=== PATIENT | female | born 1975 | race American Indian/Alaskan Native ===

== ENCOUNTER 2016-07-24 15:13 | Emergency (ER) | payer OTHER ==
[2016-07-24 15:46] VITALS: O2SAT 100
[2016-07-24 16:51] LABS: MEAN CELL VOLUME 70.1 fL (81.0-99.0); RED CELL DISTRIBUTION WIDTH 14.4 % (11.5-14.5); WHITE BLOOD COUNT 9.6 K/uL (4.8-10.8)
[2016-07-24 16:55] LABS: BASO # 0.1 K/uL (0.0-0.2); BASO % 0.8 % (0.0-2.0); EOS # 0.1 K/uL (0.0-0.7); EOS % 1.2 % (0.0-4.0); HEMATOCRIT 35.1 % (34.0-47.0); LYMPH % 20.7 % (20.0-40.0); MEAN CORPUSCULAR HEMOGLOBIN 21.7 pg (27.0-31.0); MEAN PLATELET VOLUME 8.4 fL (7.2-11.7); MONO # 0.8 K/uL (0.0-0.8); MONO % 8.4 % (0.0-10.0); NRBC % 0.1 % (0.0-2.0)
[2016-07-24 16:56] LABS: CHLORIDE 103 mmol/L (98-107)
--- NOTE | 2016-07-24 16:56 | C.PDOC ---
History Of Present Illness 41 year old female with no significant PMH presents to ED with complaints of bilateral foot swelling for 2 weeks. Patient reports swelling started gradually and feels both feet swollen and pain at rest, improves with walking. She reports pain is worse to right plantar foot. Additionally patient reports today complaining of intermittent right arm tingling sensation when she leaves arm down for too long, better when she elevates arm. She denies any headache, neck pain, dizziness, chest pain, SOB, calf pain, or taking any oral contraceptives. Time Seen by Provider: 07/24/16 16:01 Chief Complaint (Nursing): Lower Extremity Problem/Injury History Per: Patient History/Exam Limitations: no limitations Onset/Duration Of Symptoms: Days Current Symptoms Are (Timing): Still Present Severity: Moderate Past Medical History Reviewed: Historical Data, Nursing Documentation, Vital Signs Vital Signs: Last Vital Signs Temp 98.0 F 07/24/16 17:42 Pulse 65 07/24/16 17:42 Resp 17 07/24/16 17:42 BP 134/87 07/24/16 17:42 Pulse Ox 100 07/24/16 18:37 Family History: States: No Known Family Hx - Social History Hx Tobacco Use: Yes Hx Alcohol Use: Yes Hx Substance Use: Yes - Immunization History Hx Tetanus Toxoid Vaccination: Yes Hx Influenza Vaccination: No Hx Pneumococcal Vaccination: No Review Of Systems Except As Marked, All Systems Reviewed And Found Negative. Constitutional: Negative for: Fever Cardiovascular: Positive for: Edema. Negative for: Chest Pain, Palpitations Respiratory: Negative for: Cough, Shortness of Breath Musculoskeletal: Positive for: Foot Pain Neurological: Negative for: Headache, Dizziness Physical Exam - Physical Exam Appears: Non-toxic, No Acute Distress Skin: Warm, Dry, No Rash Head: Atraumatic, Normacephalic Eye(s): bilateral: Normal Inspection, PERRL, EOMI Nose: Normal Oral Mucosa: Moist Lips: Normal Appearing Neck: Normal ROM Chest: Symmetrical Cardiovascular: Rhythm Regular, No Murmur Respiratory: Normal Breath Sounds, No Accessory Muscle Use Back: Normal Inspection, No CVA Tenderness, No Vertebral Tenderness, No Paraspinal Tenderness Extremity: Tenderness, No Calf Tenderness, No Deformity, Other (right plantar medial pelletizer tender to palpation. trace pedal edema, no calf tenderness) Neurological/Psych: Oriented x3, Normal Speech Gait: Steady ED Course And Treatment - Laboratory Results Result Diagrams: 07/24/16 16:44 07/24/16 16:44 Lab Interpretation: No Acute Changes ECG: Interpreted By Me, Viewed By Me ECG Rhythm: Sinus Rhythm ECG Interpretation: No Acute Changes Rate From EC O2 Sat by Pulse Oximetry: 100 Pulse Ox Interpretation: Normal - CT Scan/US CT CERVICAL SPINE Other Rad Studies (CT/US): Read By Radiologist, Radiology Report Reviewed CT/US Interpretation: PROCEDURE: CT scan of the cervical spine 07/25/19. HISTORY: Right arm numbness. COMPARISON: No prior study available for comparison. TECHNIQUE: Contiguous helical/transaxial computed tomography images were obtained of the cervical spine without the use of intravenous contrast. Coronal and sagittal reformatted images were created and reviewed. Radiation dose: Total exam DLP = mGy-cm. This CT exam was performed using one or more of the following dose reduction techniques: Automated exposure control, adjustment of the mA and/or kV according to patient size, and/or use of iterative reconstruction technique. FINDINGS: VERTEBRAE: Current study reveals no acute compression fracture nor retropulsed fragments. . There is mild reversal of the normal cervical lordosis which could be due to patient positioning in the gantry however underlying element of muscle spasm may contribute. Vertebral bodies facets are otherwise normally aligned. DISCS/ SPINAL CANAL/NEURAL FORAMINA: Disc space heights are relatively maintained. No disc herniations nor significant disc bulges so far as can be seen. The overall central bony canal appears adequate throughout. There does appear to be mild foraminal narrowing more so on the left side at the C3-C4 level. Exit foramina appear relatively adequate at the remaining levels. . If symptoms persist, consider followup MRI of the cervical spine. PARASPINAL SOFT TISSUES: Prevertebral and paraspinal soft tissues grossly unremarkable. OTHER FINDINGS : Slightly prominent thyroid gland. Followup thyroid ultrasound could be performed for further evaluation. Lung apices are clear. IMPRESSION: Impression: No acute fractures. There is mild reversal of the normal cervical lordosis which could be due to patient positioning gantry however underlying element of muscle spasm may contribute. Note of disc herniation or significant disc bulges. The overall central bony canal appears adequate. Exit foramina appears slightly narrowed more so on the left side at the C3-C4 level and relatively adequate at the remaining levels. . If symptoms persist, consider followup MRI of the cervical spine. Prominent appearing thyroid gland. Followup thyroid ultrasound could be performed further evaluation if necessary. Bold Medical Decision Making Medical Decision Making: Impression: foot edema and arm tingling Plan: * Labs * CT C-spine * Toradol Progress: Labs reviewed showing mild hyperkalemia which may attribute to symptoms. Lasix ordered. EKG ordered showing NS at 63 bpm with peaked [address]. [address] reviewed showing no acute fractures. There is mild reversal of the normal cervical lordosis which could be due to patient positioning gantry however underlying element of muscle spasm may contribute. Exit foramina appears slightly narrowed more so on the left side at the C3-C4 level and relatively adequate at the remaining levels. Upon reevaluation patient reports feeling better, has no pain or SOB. Discussed results with patient. Recommend leg elevation for edema and to follow up with PCP for further evaluation of other findings on CT. Patient feels comfortable going home and will be discharged. Patient given follow up instructions. Instructed to return to ER if symptoms worsen or new symptoms arise. Disposition Counseled Patient/Family Regarding: Diagnosis, Need For Followup, Rx Given - Disposition Referrals: [facility] [Outside] [facility] [Outside] Disposition: HOME/ ROUTINE Disposition Time: 17:45 Condition: STABLE Additional Instructions: Follow up with your primary medical doctor or clinic in 2-5 days for further evaluation. Take medications as prescribed. Return to the emergency department at any time if symptoms persist or worsen. Prescriptions: Naproxen [Naprosyn] 1 tab PO BID PRN #25 tab PRN Reason: Pain Instructions: Hyperkalemia (DC), Cervical Spinal Stenosis (ED) - POA Present On Arrival: None - Clinical Impression Clinical Impression: Hyperkalemia, Leg edema - Scribe Statement The provider has reviewed the documentation as recorded by the Scribe (Collin Gonzalez) All medical record entries made by the Scribe were at my direction and personally dictated by me. I have reviewed the chart and agree that the record accurately reflects my personal performance of the history, physical exam, medical decision making, and the department course for this patient. I have also personally directed, reviewed, and agree with the discharge instructions and disposition.
[2016-07-24 16:57] LABS: SODIUM 135 mmol/L (132-148)
[2016-07-24 16:59] LABS: GFR AFRICAN-AMERICAN > 60
[2016-07-24 17:00] LABS: ALKALINE PHOSPHATASE 67 U/L (38-126); ALT/SGPT 7 U/L (9-52); AST/SGOT 31 U/L (14-36); BLOOD UREA NITROGEN 10 mg/dL (7-17); CARBON DIOXIDE 26 mmol/L (22-30); GLUCOSE,RANDOM 94 mg/dL (65-105); TOTAL PROTEIN 7.8 g/dL (6.3-8.3)
[2016-07-24 17:01] LABS: CALCIUM 8.6 mg/dl (8.6-10.4)
[2016-07-24 17:14] LABS: RBC URINE 2 /hpf (0-3); URINE BILIRUBIN NEGATIVE (NEGATIVE); URINE BLOOD NEGATIVE (NEGATIVE); URINE COLOR Yellow (YELLOW); URINE GLUCOSE (UA) NORMAL (Normal); URINE KETONE NEGATIVE (NEGATIVE); URINE LEUKOCYTE ESTERASE NEG Leu/uL (Negative); URINE PROTEIN NEGATIVE (NEGATIVE); URINE UROBILINOGEN NORMAL mg/dL (0.2-1.0); WBC URINE 1 /hpf (0-5)
[2016-07-24 17:17] LABS: POTASSIUM 5.7 mmol/L (3.6-5.2)
--- NOTE | 2016-07-24 17:20 | CT ---
PROCEDURE: CT scan of the cervical spine 07/25/19 17. HISTORY: Right arm numbness. COMPARISON: No prior study available for comparison TECHNIQUE: Contiguous helical/transaxial computed tomography images were obtained of the cervical spine without the use of intravenous contrast. Coronal and sagittal reformatted images were created and reviewed. Radiation dose: Total exam DLP = mGy-cm. This CT exam was performed using one or more of the following dose reduction techniques: Automated exposure control, adjustment of the mA and/or kV according to patient size, and/or use of iterative reconstruction technique. FINDINGS: VERTEBRAE: Current study reveals no acute compression fracture nor retropulsed fragments. . There is mild reversal of the normal cervical lordosis which could be due to patient positioning in the gantry however underlying element of muscle spasm may contribute. Vertebral bodies facets are otherwise normally aligned. DISCS/SPINAL CANAL/NEURAL FORAMINA: Disc space heights are relatively maintained. No disc herniations nor significant disc bulges so far as can be seen. The overall central bony canal appears adequate throughout. There does appear to be mild foraminal narrowing more so on the left side at the C3-C4 level. Exit foramina appear relatively adequate at the remaining levels. . If symptoms persist, consider followup MRI of the cervical spine. PARASPINAL SOFT TISSUES: Prevertebral and paraspinal soft tissues grossly unremarkable. OTHER FINDINGS: Slightly prominent thyroid gland. Followup thyroid ultrasound could be performed for further evaluation. Lung apices are clear. IMPRESSION: Impression: No acute fractures. There is mild reversal of the normal cervical lordosis which could be due to patient positioning gantry however underlying element of muscle spasm may contribute. Note of disc herniation or significant disc bulges. The overall central bony canal appears adequate. Exit foramina appears slightly narrowed more so on the left side at the C3-C4 level and relatively adequate at the remaining levels. . If symptoms persist, consider followup MRI of the cervical spine. Prominent appearing thyroid gland. Followup thyroid ultrasound could be performed further evaluation if necessary. Bold
[2016-07-24 17:49] VITALS: BP 134/87; PULSE 65; RESP 17; TEMP 98
== END 2016-07-24 18:03 | disposition home or self-care (01) ==
LOC: C.ER 15:13
DX: R60.0 Localized edema (principal); E87.5 Hyperkalemia
CPT/HCPCS: 72125; 80053; 81001; 82550; 83880; 84703; 85025; 85651; 96374; 99284; J1885